=== PATIENT | male | born 1995 | race Caucasian/White ===

== ENCOUNTER 2022-08-29 09:14 | Emergency (ER) | payer OTHER, SELFPAY ==
--- NOTE | ~2022-08-29 | XR_ITS ---
EXAMINATION: XR hand LT min 3V DATE: 08/29/2022 10:02 INDICATION: Left hand laceration of the first digit. TECHNIQUE: 3 views of left hand were obtained. COMPARISON: None. FINDINGS: Bone alignment is normal. No fracture. Joint spaces are normal. IMPRESSION: 1. No fracture or radiopaque foreign body. Reviewed, dictated and finalized at location A. R [employer]
[2022-08-29 09:19] VITALS: BP 127/82; PULSE 92; RESP 18; TEMP 36.6; O2SAT 100
--- NOTE | 2022-08-29 09:28 | ED.GENADULT ---
HPI - General Adult General Chief complaint: Wound/Laceration <Francesco Alanis PA-C - Last Filed: 08/29/22 11:13> Stated complaint: thumn lac <Francesco Alanis PA-C - Last Filed: 08/29/22 11:13> Time Seen by Provider: 08/29/22 09:17 <Francesco Alanis PA-C - Last Filed: 08/29/22 11:13> History of Present Illness HPI narrative: This is a 27-year-old male presents for chief complaint of laceration to the left thumb. This happened at work this morning when he was using his pocket knife to try to cut a zip tie and accidentally sliced across his dorsal left thumb. He works as an stage electrician. He denies any pain. Reports the bleeding has stopped since time of injury. Denies any numbness or weakness. Denies any further site of injury. Tetanus status unknown <Farncesco Alanis PA-C - Last Filed: 08/29/22 11:13> Related Data Allergies/adverse reactions: Allergies Allergy/AdvReac Type Severity Reaction Status Date / Time No Known Allergies Allergy Verified 08/29/22 09:22 <Francesco Alanis PA-C - Last Filed: 08/29/22 11:13> Review of Systems Review of Systems: CONSTITUTIONAL: Denies fever, chills, or sweats. SKIN: Endorses skin laceration denies rash or itching. MUSCULOSKELETAL: Denies back pain, joint pain, or myalgia. NEUROLOGIC: Denies headache, numbness, dizziness, or weakness. PSYCHIATRIC: Denies anxiety or depression. <Francesco Alanis PA-C - Last Filed: 08/29/22 11:13> Exam Narrative: GENERAL: Well-appearing, well-nourished, and in no acute distress. HEAD: Normocephalic, atraumatic. EYES: PERRLA and EOMI. EXTREMITIES: There is a 2 cm linear laceration that is very superficial in nature to the left dorsal thumb near the interphalangeal joint. Active bleeding has stopped. Normal range of motion. 5 out of 5 strength with flexion and extension of the distal joint. No edema. Nontender in the area. SKIN: Warm, dry, no rash. NEURO: Alert and oriented x3. No focal deficits. No numbness. <Francesco Alanis PA-C - Last Filed: 08/29/22 11:13> Course ROLL PICKER/PA Physician Supervision For this patient encounter, I reviewed the ROLL PICKER or PA documentation, treatment plan, and medical decision making; and I had rmed-[id number] time with this patient. 27-year-old male with a laceration to his left thumb from using a box inspector. X-ray was negative for acute abnormality. Patient was neurovascular intact. Laceration was repaired with sutures. Patient was provided IV splint for comfort. Patient tetanus was updated in the ED. Patient was encouraged of close follow-up with his primary care physician and on wound care. All question concerns were addressed. <Huseyin Rao MD - Last Filed: 08/29/22 18:48> Vital Signs Vital signs: Vital Signs Temperature 97.9 F 08/29/22 09:19 Pulse Rate 92 08/29/22 09:19 Respiratory Rate 18 08/29/22 09:19 Blood Pressure 127/82 08/29/22 09:19 Pulse Oximetry 100 08/29/22 09:19 Oxygen Delivery Room Air 08/29/22 09:19 Temperature 97.9 F 08/29/22 09:19 Pulse Rate 74 08/29/22 11:08 Respiratory Rate 16 08/29/22 11:08 Blood Pressure 116/74 08/29/22 11:08 Pulse Oximetry 99 08/29/22 11:08 Oxygen Delivery Room Air 08/29/22 09:19 <Francesco Alanis PA-C - Last Filed: 08/29/22 11:13> Vital Signs Temperature 97.9 F 08/29/22 09:19 Pulse Rate 92 08/29/22 09:19 Respiratory Rate 18 08/29/22 09:19 Blood Pressure 127/82 08/29/22 09:19 Pulse Oximetry 100 08/29/22 09:19 Oxygen Delivery Room Air 08/29/22 09:19 Temperature 97.9 F 08/29/22 09:19 Pulse Rate 74 08/29/22 11:08 Respiratory Rate 16 08/29/22 11:08 Blood Pressure 116/74 08/29/22 11:08 Pulse Oximetry 99 08/29/22 11:08 Oxygen Delivery Room Air 08/29/22 09:19 <Huseyin Roa MD - Last Filed: 08/29/22 18:48> Procedures Laceration Laceration 1: Date: 08/29/22 <Francesco Alanis PA-C - Last Filed: 08/29/22 11:13> Time: 1
[2022-08-29] MEDS: TETANUS,DIPHTHERIA,AC PERTUSSIS ADULT (0.5 ML) BOOSTRIX IM (09:48)
[2022-08-29 11:08] VITALS: BP 116/74; PULSE 74; RESP 16; O2SAT 99
== END 2022-08-29 11:26 | disposition home or self-care (01) ==
LOC: ANHED 11:21
PROVIDERS: Emergency Provider Physician Assistant
DX: S61.012A Laceration without foreign body of left thumb without damage to nail, initial encounter (principal); W26.0XXA Contact with knife, initial encounter; Z23 Encounter for immunization
CPT/HCPCS: 12001; 73130; 90471; 90715; 99283